=== PATIENT | female | born 1995 | race Caucasian/White ===

== ENCOUNTER 2018-03-26 18:41 | Inpatient (IN) | payer OTHER ==
[~2018-03-26] VITALS: Ht 152.4 cm; Wt 93.9 kg
[~2018-03-26 18:41] MED LIST: ASPIRIN81 M1; SYNTHROID75 MCG
[2018-03-26] MEDS ORDERED: DOC-Q-LACE100 MG (19:31)
[2018-04-02] MEDS ORDERED: TRAM1TAB98 PO (17:39)
[2018-04-02] MEDS ORDERED: LEVOTHYROXINE75 MCG PO (17:39)
== END 2018-04-02 18:09 | disposition home or self-care (01) | DRG 419 ==
LOC: ER 18:41 → SEC-K 03-27 15:00 → SURG 03-27 15:00
PROVIDERS: Surgery
PROC: BF37ZZZ Magnetic Resonance Imaging (MRI) of Pancreas (ICD-10-PCS; 2018-03-28)
PROC: 0FC98ZZ Extirpation of Matter from Common Bile Duct, Via Natural or Artificial Opening Endoscopic (ICD-10-PCS; 2018-03-31)
PROC: 0F798ZZ Dilation of Common Bile Duct, Via Natural or Artificial Opening Endoscopic (ICD-10-PCS; 2018-03-31)
PROC: 0DNU4ZZ Release Omentum, Percutaneous Endoscopic Approach (ICD-10-PCS; 2018-04-01)
PROC: BF14YZZ Fluoroscopy of Gallbladder, Bile Ducts and Pancreatic Ducts using Other Contrast (ICD-10-PCS; 2018-04-01)
PROC: 0FT44ZZ Resection of Gallbladder, Percutaneous Endoscopic Approach (ICD-10-PCS; principal; 2018-04-01 07:15)
DX: K80.63 Calculus of gallbladder and bile duct with acute cholecystitis with obstruction (principal); E80.6 Other disorders of bilirubin metabolism; K66.0 Peritoneal adhesions (postprocedural) (postinfection); E03.8 Other specified hypothyroidism; E11.9 Type 2 diabetes mellitus without complications; E66.8 Other obesity; K59.09 Other constipation; Z88.0 Allergy status to penicillin

== ENCOUNTER 2019-02-14 19:47 | Emergency (ER) | payer OTHER ==
[~2019-02-14] VITALS: Ht 154.9 cm; Wt 93.9 kg
[~2019-02-14 19:47] MED LIST changes: +DOC-Q-LACE100 MG; +LEVOTHYROXINE75 MCG PO; +TRAM1TAB98 PO
[2019-02-14] MEDS ORDERED: METFORMIN HCL1000 MG (19:59)
== END 2019-02-14 22:55 | disposition home or self-care (01) ==
LOC: ER 19:47
DX: J11.1 Influenza due to unidentified influenza virus with other respiratory manifestations (principal); B96.0 Mycoplasma pneumoniae [M. pneumoniae] as the cause of diseases classified elsewhere

== ENCOUNTER 2019-05-14 07:44 | Emergency (ER) | payer OTHER ==
[~2019-05-14] VITALS: Ht 154.9 cm; Wt 93.9 kg
[~2019-05-14 07:44] MED LIST changes: +METFORMIN HCL1000 MG
== END 2019-05-14 08:50 | disposition home or self-care (01) ==
LOC: ER 07:44
DX: J35.01 Chronic tonsillitis (principal); J02.8 Acute pharyngitis due to other specified organisms

== ENCOUNTER 2019-11-28 14:18 | Emergency (ER) | payer OTHER ==
[~2019-11-28] VITALS: Ht 154.9 cm; Wt 86.2 kg
[2019-11-28] MEDS ORDERED: FLONASE ALLERG9.9 ML NASAL (19:03)
[2019-11-28] MEDS ORDERED: ZYRTEC10 M3 PO (19:03)
[2019-11-28] MEDS ORDERED: PEPCID AC20 MG PO (19:03)
[2019-11-28] MEDS ORDERED: TUSSIN DM CLEA118 M1 PO (19:03)
== END 2019-11-28 20:43 | disposition home or self-care (01) ==
LOC: ER 14:18
DX: K21.9 Gastro-esophageal reflux disease without esophagitis (principal); R09.82 Postnasal drip; Z03.818 Encounter for observation for suspected exposure to other biological agents ruled out; R09.81 Nasal congestion

== ENCOUNTER 2020-01-27 13:12 | Emergency (ER) | payer OTHER ==
[~2020-01-27] VITALS: Ht 154.9 cm; Wt 91.6 kg
[~2020-01-27 13:12] MED LIST changes: +FLONASE ALLERG9.9 ML NASAL; +PEPCID AC20 MG PO; +TUSSIN DM CLEA118 M1 PO; +ZYRTEC10 M3 PO
[2020-01-27] MEDS ORDERED: SYNTHROID50 MCG (13:24)
[2020-01-27] MEDS ORDERED: LEVAQUIN500 MG PO (18:02)
[2020-01-27] MEDS ORDERED: CLARITIN-D 121 EACH PO (18:02)
== END 2020-01-27 18:13 | disposition home or self-care (01) ==
LOC: ER 13:12
DX: R51 Headache (principal); Z20.828 Contact with and (suspected) exposure to other viral communicable diseases

== ENCOUNTER 2020-04-20 10:52 | Emergency (ER) | payer OTHER ==
[~2020-04-20] VITALS: Ht 154.9 cm; Wt 90.7 kg
[~2020-04-20 10:52] MED LIST changes: +CLARITIN-D 121 EACH PO; +LEVAQUIN500 MG PO; +SYNTHROID50 MCG
[2020-04-20] MEDS ORDERED: KETO10TA2 PO (14:32)
[2020-04-20] MEDS ORDERED: LEVOFLOXACIN500 MG PO (14:32)
== END 2020-04-20 14:40 | disposition home or self-care (01) ==
LOC: ER 10:52
DX: K04.7 Periapical abscess without sinus (principal); Z03.818 Encounter for observation for suspected exposure to other biological agents ruled out

== ENCOUNTER 2021-08-12 20:38 | Emergency (ER) | payer OTHER ==
[~2021-08-12] VITALS: Ht 154.9 cm; Wt 91.2 kg
[~2021-08-12 20:38] MED LIST changes: +KETO10TA2 PO; +LEVOFLOXACIN500 MG PO
[2021-08-12] MEDS ORDERED: MUCINEX DM ER1 EAC1 PO (23:37)
[2021-08-12] MEDS ORDERED: AZITHROMYCIN500 MG PO (23:37)
[2021-08-12] MEDS ORDERED: ZYRTEC10 MG PO (23:37)
[2021-08-12] MEDS ORDERED: ACETAMINOPHEN650 M2 PO (23:37)
== END 2021-08-13 00:09 | disposition home or self-care (01) ==
LOC: ER 20:38
DX: A49.3 Mycoplasma infection, unspecified site (principal); Z20.822 Contact with and (suspected) exposure to COVID-19

== ENCOUNTER 2021-09-18 21:37 | Emergency (ER) | payer OTHER ==
[~2021-09-18] VITALS: Ht 154.9 cm; Wt 91.6 kg
[~2021-09-18 21:37] MED LIST changes: +ACETAMINOPHEN650 M2 PO; +AZITHROMYCIN500 MG PO; +MUCINEX DM ER1 EAC1 PO; +ZYRTEC10 MG PO
[2021-09-19] MEDS ORDERED: PHENAGIL TABLE1 EACH PO (02:52)
== END 2021-09-19 03:01 | disposition home or self-care (01) ==
LOC: ER 21:37
DX: B34.9 Viral infection, unspecified (principal); Z88.0 Allergy status to penicillin; E03.9 Hypothyroidism, unspecified; E11.9 Type 2 diabetes mellitus without complications; Z20.822 Contact with and (suspected) exposure to COVID-19

== ENCOUNTER 2022-02-16 15:52 | Emergency (ER) | payer OTHER ==
[~2022-02-16] VITALS: Ht 152.4 cm; Wt 99.3 kg
[~2022-02-16 15:52] MED LIST changes: +PHENAGIL TABLE1 EACH PO
[2022-02-16] MEDS ORDERED: GLUMETZA1000 MG PO (19:59)
[2022-02-16] MEDS ORDERED: SYNTHROID50 MCG PO (19:59)
== END 2022-02-16 20:04 | disposition home or self-care (01) ==
LOC: ER 15:52
DX: N39.0 Urinary tract infection, site not specified (principal); Z88.0 Allergy status to penicillin

== ENCOUNTER 2022-06-03 09:28 | Emergency (ER) | payer OTHER ==
[~2022-06-03] VITALS: Ht 154.9 cm; Wt 91.6 kg
[~2022-06-03 09:28] MED LIST changes: +GLUMETZA1000 MG PO; +SYNTHROID50 MCG PO
== END 2022-06-03 14:08 | disposition home or self-care (01) ==
LOC: ER 09:28
DX: N39.0 Urinary tract infection, site not specified (principal); E11.9 Type 2 diabetes mellitus without complications; Z79.84 Long term (current) use of oral hypoglycemic drugs; E03.9 Hypothyroidism, unspecified; Z88.0 Allergy status to penicillin

== ENCOUNTER 2022-07-21 10:16 | Emergency (ER) | payer OTHER ==
[~2022-07-21] VITALS: Ht 157.5 cm; Wt 90.7 kg
[2022-07-21] MEDS ORDERED: ZITHROMAX500 MG PO (12:59)
[2022-07-21] MEDS ORDERED: TUSSIN DM SYRU118 ML PO (12:59)
== END 2022-07-21 13:58 | disposition home or self-care (01) ==
LOC: ER 10:16
DX: J06.9 Acute upper respiratory infection, unspecified (principal); Z88.0 Allergy status to penicillin; Z20.822 Contact with and (suspected) exposure to COVID-19

== ENCOUNTER 2022-10-31 23:40 | Emergency (ER) | payer OTHER ==
[~2022-10-31] VITALS: Ht 154.9 cm; Wt 90.7 kg
[~2022-10-31 23:40] MED LIST changes: +TUSSIN DM SYRU118 ML PO; +ZITHROMAX500 MG PO
== END 2022-11-01 06:59 | disposition home or self-care (01) ==
LOC: ER 23:40
DX: N76.0 Acute vaginitis (principal); R30.0 Dysuria; E11.65 Type 2 diabetes mellitus with hyperglycemia; Z79.84 Long term (current) use of oral hypoglycemic drugs

== ENCOUNTER → 2023-02-04 | Emergency (ER) | payer OTHER ==
[~2023-02-04] VITALS: Ht 162.6 cm; Wt 83.9 kg
[~2023-02-04] MED LIST changes: +IVERMECTIN3 MG PO; +METFORMIN HCL1000 M1 PO; +NIX59 M1 TOP; +OSEL75CA PO; +SYNTHROID75 MCG PO; +TUSNEL LIQUID178 ML PO
[2023-02-04 12:38] LABS: HEMATOCRIT 39.4 % (36.0-45.00); HEMOGLOBIN 12.6 g/dL (12.0-15.00); MEAN CELL VOLUME 79.2 fL (80.00-100.00); MEAN CORPUSCULAR HEMOGLOBIN 25.4 pg (27.00-32.0); MEAN CORPUSCULAR HGB CONC 32.1 g/dl (32.0-36.0); PLATELET COUNT 181 K/uL (150-450); RED BLOOD COUNT 4.98 M/uL (4.00-6.00); RED CELL DISTRIBUTION WIDTH 13.8 % (11.5-14.5)
== END | disposition home or self-care (01) ==
LOC: ER 10:33
PROVIDERS: General Practice
DX: J10.1 Influenza due to other identified influenza virus with other respiratory manifestations (principal); E10.9 Type 1 diabetes mellitus without complications; Z79.84 Long term (current) use of oral hypoglycemic drugs; Z20.822 Contact with and (suspected) exposure to COVID-19; Z88.0 Allergy status to penicillin

== ENCOUNTER 2023-11-21 11:17 | Emergency (ER) | payer OTHER ==
[~2023-11-21] VITALS: Ht 154.9 cm; Wt 87.1 kg
[2023-11-21] MEDS ORDERED: LEVOXYL50 MCG PO (11:48)
[2023-11-21] MEDS ORDERED: TRIJARDY XR 101 EACH PO (11:51)
[2023-11-21] MEDS ORDERED: GUAIFENESIN 200 MG/10 ML BLIST.PACK PO ONE (12:15)
[2023-11-21] MEDS ORDERED: ACETAMINOPHEN 500 MG GEL..CAP PO ONE (12:15)
[2023-11-21 12:37] LABS: HEMATOCRIT 39.8 % (36.0-45.00); MEAN CELL VOLUME 77.9 fL (80.00-100.00); MEAN CORPUSCULAR HEMOGLOBIN 25.4 pg (27.00-32.0); MEAN CORPUSCULAR HGB CONC 32.7 g/dl (32.0-36.0); PLATELET COUNT 186 K/uL (150-450); RED BLOOD COUNT 5.11 M/uL (4.00-6.00); RED CELL DISTRIBUTION WIDTH 13.7 % (11.5-14.5)
== END 2023-11-21 14:58 | disposition home or self-care (01) ==
LOC: ER 11:18
PROVIDERS: General Practice
DX: U07.1 COVID-19 (principal); E11.9 Type 2 diabetes mellitus without complications; Z79.84 Long term (current) use of oral hypoglycemic drugs; E03.9 Hypothyroidism, unspecified; Z88.0 Allergy status to penicillin

== ENCOUNTER 2024-03-23 09:20 | Emergency (ER) | payer OTHER ==
[~2024-03-23] VITALS: Ht 154.9 cm; Wt 88.5 kg
[~2024-03-23 09:20] MED LIST changes: +LEVOXYL50 MCG PO; +TRIJARDY XR 101 EACH PO
== END 2024-03-23 12:58 | disposition home or self-care (01) ==
LOC: ER 09:21
DX: J06.9 Acute upper respiratory infection, unspecified (principal); J00 Acute nasopharyngitis [common cold]; Z20.822 Contact with and (suspected) exposure to COVID-19; Z88.0 Allergy status to penicillin

== ENCOUNTER 2024-08-15 08:56 | Emergency (ER) | payer OTHER ==
[~2024-08-15] VITALS: Ht 154.9 cm; Wt 88.9 kg
[2024-08-15] MEDS ORDERED: 0.9 % SODIUM CHLORIDE 1,000 ML IV STA (10:08)
[2024-08-15 11:05] LABS: HEMATOCRIT 38.7 % (36.0-45.00); HEMOGLOBIN 12.9 g/dL (12.0-15.00); MEAN CELL VOLUME 77.1 fL (80.00-100.00); MEAN CORPUSCULAR HEMOGLOBIN 25.6 pg (27.00-32.0); MEAN CORPUSCULAR HGB CONC 33.2 g/dl (32.0-36.0); PLATELET COUNT 186 K/uL (150-450); RED BLOOD COUNT 5.02 M/uL (4.00-6.00)
[2024-08-15 11:42] LABS: CALCIUM 8.5 mg/dL (8.5-10.1); CREATININE SERUM 0.56 mg/dL (0.55-1.02); GFR 126.26; POTASSIUM 4.01 mEq/L (3.5-5.1)
[2024-08-15 11:57] LABS: PH,URINE 5.5 (5.0-8.0); URINE APPEARANCE Clear; URINE BILIRRUBIN Negative (NEGATIVE); URINE BLOOD Negative; URINE COLOR Yellow; URINE KETONE Negative (NEGATIVE); URINE LEUKOCYTE Small; URINE NITRATE Negative; URINE PROTEIN Negative (NEGATIVE); URINE UROBILINOGEN 0.2 E.U./dl
[2024-08-15 12:02] LABS: URINE BACTERIA 249.6 uL (0.0-1933); URINE EPITHELIAL CELLS 9.9 uL (0.0-38.8); URINE WBC 864.5 uL (0.0-23.2)
[2024-08-15 12:14] LABS: URINE GLUCOSE >=1000 MG/DL (NEGATIVE); URINE RBC 1.7 uL (0.0-20.8)
== END 2024-08-15 13:51 | disposition home or self-care (01) ==
LOC: ER 08:56
DX: O20.9 Hemorrhage in early pregnancy, unspecified (principal); Z3A.01 Less than 8 weeks gestation of pregnancy; R30.0 Dysuria; Z88.0 Allergy status to penicillin

== ENCOUNTER 2025-03-10 17:02 | Emergency (ER) | payer OTHER ==
[~2025-03-10] VITALS: Ht 154.9 cm; Wt 80.7 kg
[2025-03-10] MEDS ORDERED: METFORMIN HCL500 M3 PO (17:53)
[2025-03-10] MEDS ORDERED: HUMALOG100 UNIT/2 SQ (17:53)
[2025-03-10] MEDS ORDERED: LABETALOL H5 MG/1 ML IV (17:54)
[2025-03-10] MEDS ORDERED: MORPHINE SULFATE 2 MG/ML SYRINGE IV STA (18:10)
[2025-03-10] MEDS ORDERED: FAMOTIDINE/PF 20 MG/2 ML VIAL IV STA (18:10)
[2025-03-10] MEDS ORDERED: 0.9 % SODIUM CHLORIDE 1,000 ML IV SCH (18:15)
[2025-03-10 20:11] LABS: BASO % 0.1 % (0.1-1.2); EOS # 0.11 (0.04-0.54); EOS % 1.5 % (0.7-7.0); LYMPH # 2.82 (1.18-3.74); LYMPH % 38.6 % (19.3-53.1); MEAN PLATELET VOLUME 10.40 fl (9.4-12.4); MONO # 0.45 (0.24-0.82); MONO % 6.2 % (4.7-12.5); NEUT # 3.91 (1.56-6.13); NEUT % 53.5 % (34.0-71.1); RED CELL DISTRIBUTION WIDTH 14.2 % (11.6-14.4)
[2025-03-10 20:36] LABS: INR 1.03
[2025-03-10 20:42] LABS: ALT/SGPT 26.0 U/L (12-78); AST/SGOT 14.0 U/L (15-37); BILIRUBIN TOTAL 0.47 mg/dL (0.3-1.2); BUN CREA RATIO 24.0 (7.0-25.0); CREATININE SERUM 0.59 mg/dL (0.55-1.02); GFR 118.88; GLOBULINA 4.6 G/DL (2.4-3.5); GLUCOSE FASTING 95.0 mg/dL (65-100); OSMOLALITY SERUM 278.0 MOSM/KG (275-295)
[2025-03-10 21:06] LABS: URINE APPEARANCE Clear; URINE BILIRRUBIN Negative (NEGATIVE); URINE BLOOD Negative; URINE COLOR Yellow; URINE GLUCOSE Negative (NEGATIVE); URINE KETONE Negative (NEGATIVE); URINE LEUKOCYTE Trace; URINE NITRATE Negative; URINE PROTEIN Negative (NEGATIVE); URINE UROBILINOGEN 0.2 E.U./dl
[2025-03-10 21:11] LABS: URINE BACTERIA 58.7 uL (0.0-1933); URINE EPITHELIAL CELLS 16.1 uL (0.0-38.8); URINE WBC 6.3 uL (0.0-23.2)
[2025-03-10 21:17] LABS: URINE CAST 0.14 uL (0.0-1.40); URINE RBC 1.3 uL (0.0-20.8)
[2025-03-11] MEDS ORDERED: TAMSULOSIN HCL 0.4 MG CAP PO STA (00:20)
[2025-03-11] MEDS ORDERED: MORPHINE SULFATE 4 MG/ML CARTRIDGE IV STA (00:20)
[2025-03-11] MEDS ORDERED: BUDESONIDE0.5 MG/2 M IH (00:24)
[2025-03-11] MEDS ORDERED: LEVOFLOXACIN750 MG PO (00:24)
[2025-03-11] MEDS ORDERED: MEDROLPACK PO (00:24)
[2025-03-11] MEDS ORDERED: TAMS0.4C PO (00:24)
== END 2025-03-11 01:29 | disposition home or self-care (01) ==
LOC: ER 17:02
PROVIDERS: Physician Assistant Medical
DX: N39.0 Urinary tract infection, site not specified (principal); Z88.0 Allergy status to penicillin; E03.8 Other specified hypothyroidism; N20.9 Urinary calculus, unspecified; J22 Unspecified acute lower respiratory infection; E11.9 Type 2 diabetes mellitus without complications; Z79.4 Long term (current) use of insulin